=== PATIENT | male | born 1995 | race Caucasian/White ===

== ENCOUNTER 2017-01-20 20:11 | Emergency (ER) | payer BC ==
--- NOTE | 2017-01-20 20:45 | EDM.PDOC ---
ED HPI GENERAL MEDICAL PROBLEM - General Chief Complaint: Behavioral/Psych Stated Complaint: SUICIDAL Time Seen by Provider: 01/20/17 20:41 Source of Information: Reports: Patient History Limitations: Reports: No Limitations - History of Present Illness INITIAL COMMENTS - FREE TEXT/NARRATIVE: HISTORY AND PHYSICAL: [21-year-old male presenting with counselor from the [facility], patient expressed suicidal ideation] History of Present Illness: []Patient has history of opiate abuse Recently has been on the basketball team, he has a hip injury with several surgeries is not improving MRI was not good patient was found in a position crying behind his bed. Patient had text at [employer] to many of his friends. He has a bottle of meloxicam and he was going to take the whole bottle. Patient has history at least 2 of cutting. Review of Systems: As per history of present illness and below otherwise all systems reviewed and negative. Past medical history: As per history of present illness and as reviewed below otherwise noncontributory. Surgical history: As per history of present illness and as reviewed below otherwise noncontributory. Social history: No reported history of drug or alcohol abuse. Family history: As per history of present illness and as reviewed below otherwise noncontributory. Physical exam: Alert male who has fairly good eye contact. He is answering questions well. Discussion with the counselor from the [facility] reveals not quite truthful with some of the answers. Denies hearing voices. Patient does smoke marijuana last instance was 24 hours ago. HEENT: Atraumatic, normocehpalic, pupils reactive, negative for conjunctival pallor or scleral icterus, mucous membranes moist, throat clear, neck supple, nontender, trachea midline. Lungs: Clear to auscultation, breath sounds equal bilaterally, chest non tender. Heart: S1S2, regular, negative for clicks, rubs, or JVD. Abdomen: Soft, nondistended, nontender. Negative for masses or hepatossplenmegaly. Negative for costovertebral tenderness. Pelvis: Stable nontender. Genitourinary: Deferred. Rectal: Deferred Extremities: Atraumatic, negative for cords or calf pain. Neurovascular unremarkable. Neuro: Awake, alert, oriented. Cranial nerves II through XII unremarkable. Cerebellum unremarkable. Motor and sensory unremarkable throughout. Exam nonfocal. Have discussed this case with his counselor from [facility] and relayed our conversation to Dr. Byrd at [facility] services. He has kindly accepted this patient Discussed this patient with emergency room physician Dr. Flowers who will admit the patient to emergency room for further evaluation all returned values will be sent to the emergency room once they have been returned from lab. Diagnostics: [Mental health panel] Therapeutics: [] Impression: [Suicidal ideations] Plan: [Transfer per ground ambulance to [place] [facility].] Definitive disposition and diagnosis as appropriate pending reevaluation and review of above. Onset: Gradual - Related Data Allergies Allergy/AdvReac Type Severity Reaction Status Date / Time No Known Allergies Allergy Verified 01/20/17 20:31 Home Meds: Home Meds . [No Known Home Meds] 01/20/17 [History] Past Medical History Psychiatric History: Reports: Depression - Infectious Disease History Infectious Disease History: Reports: Chicken Pox - Past Surgical History Musculoskeletal Surgical History: Reports: Other (See Below) Other Musculoskeletal Surgeries/Procedures:: Has had bilat lower leg surgeries and has a hip injury Social & Family History - Family History Family Medical History: Noncontributory - Tobacco Use Smoking Status *Q: Never Smoker - Caffeine Use Caffeine Use: Reports: None - Recreational Drug Use Recreational Drug Use: Yes Recreational Drug Type: Reports: Marijuana/Hashish Other Recreational Drug Type: daily marijuana use ED ROS GENERAL - Review of Systems Review Of Systems: ROS reveals no pertinent complaints other than HPI. - Physical Exam Exam: See Below (See dictation) Course - Vital Signs Last Recorded V/S: Last Vital Signs Temp 37.1 C 01/20/17 20:28 Pulse 99 01/20/17 20:28 Resp 16 01/20/17 20:28 BP 114/63 01/20/17 20:28 Pulse Ox 97 01/20/17 20:28 - Orders/Labs/Meds Orders: Active Orders 24 hr Category Date Time Status ACETAMINOPHEN [CHEM] Stat Lab 01/20/17 20:17 Ordered CBC WITH AUTO DIFF [HEME] Stat Lab 01/20/17 20:17 Ordered COMPREHENSIVE METABOLIC PN,CMP [CHEM] Stat Lab 01/20/17 20:17 Ordered DRUG SCREEN, URINE [URCHEM] Stat Lab 01/20/17 20:18 Uncollected ETHANOL BLOOD MEDICAL [CHEM] Stat Lab 01/20/17 20:17 Ordered SALICYLATE [CHEM] Stat Lab 11/21/17 20:17 Ordered Departure - Departure Time of Disposition: 21:02 Disposition: Home, Self-Care 01 Condition: Good Clinical Impression: Self-harm - Discharge Information Referrals: PCP,None [Primary Care Provider] - Forms: ED Department Discharge
[2017-01-20 21:23] LABS: ACETAMINOPHEN < 3.0 ug/mL; CHLORIDE,CL 104 mmol/L (98-110); SODIUM,NA 139 mmol/L (136-146)
== END 2017-01-20 21:40 ==
LOC: MW.ED 20:11 → MERGE 20:11 → MW.ED 21:40
DX: R45.851 Suicidal ideations (principal); F32.9 Major depressive disorder, single episode, unspecified
CPT/HCPCS: 36415; 80053; 80305; 85025; 99285; G0480; 99283

== ENCOUNTER 2017-06-17 03:44 | Emergency (ER) | payer BC ==
[2017-06-17 04:48] LABS: CHLORIDE,CL 105 mmol/L (98-107); SODIUM,NA 140 mmol/L (136-148)
--- NOTE | 2017-06-17 05:27 | EDM.PDOC ---
ED HPI GENERAL MEDICAL PROBLEM - General Chief Complaint: Skin Complaint Stated Complaint: FEELING ILL Time Seen by Provider: 06/17/17 05:25 - History of Present Illness INITIAL COMMENTS - FREE TEXT/NARRATIVE: HISTORY AND PHYSICAL: History of present illness: Patient is a 21-year-old white male presents with a concern of pruritus states also had a poor appetite over the last several days he denies tender lobe swelling is not reporting any fever vomiting diarrhea chest pain shortness of breath or other concern. Review of systems: As per history of present illness and below otherwise all systems reviewed and negative. Past medical history: As per history of present illness and as reviewed below otherwise noncontributory. Surgical history: As per history of present illness and as reviewed below otherwise noncontributory. Social history: No reported history of drug or alcohol abuse. Family history: As per history of present illness and as reviewed below otherwise noncontributory. Physical exam: HEENT: Atraumatic, normocephalic, pupils reactive, negative for conjunctival pallor or scleral icterus, mucous membranes moist, throat clear, neck supple, nontender, trachea midline. Lungs: Clear to auscultation, breath sounds equal bilaterally, chest nontender. Heart: S1S2, regular, negative for clicks, rubs, or JVD. Abdomen: Soft, nondistended, nontender. Negative for masses or hepatosplenomegaly. Negative for costovertebral tenderness. Pelvis: Stable nontender. Genitourinary: Deferred. Rectal: Deferred. Extremities: Atraumatic, negative for cords or calf pain. Neurovascular unremarkable. Neuro: Awake, alert, oriented. Cranial nerves II through XII unremarkable. Cerebellum unremarkable. Motor and sensory unremarkable throughout. Exam nonfocal. Diagnostics: CBC CMP urine drug screen Therapeutics: None Impression: #1 pruritus Definitive disposition and diagnosis as appropriate pending reevaluation and review of above. - Related Data Allergies Allergy/AdvReac Type Severity Reaction Status Date / Time No Known Allergies Allergy Verified 06/17/17 04:01 Home Meds: Home Meds buPROPion [Wellbutrin] 0 mg PO DAILY 06/17/17 [History] Past Medical History Psychiatric History: Reports: Anxiety, Depression - Infectious Disease History Infectious Disease History: Reports: Chicken Pox - Past Surgical History Musculoskeletal Surgical History: Reports: Other (See Below) Other Musculoskeletal Surgeries/Procedures:: Has had bilat lower leg surgeries and has a hip injury Social & Family History - Family History Family Medical History: Noncontributory - Tobacco Use Smoking Status *Q: Never Smoker - Caffeine Use Caffeine Use: Reports: None - Recreational Drug Use Recreational Drug Use: Yes Recreational Drug Type: Reports: Marijuana/Hashish Other Recreational Drug Type: daily marijuana use Recreational Drug Use Frequency: Socially ED ROS GENERAL - Review of Systems Review Of Systems: ROS reveals no pertinent complaints other than HPI. ED EXAM, SKIN/RASH Exam: See Below (See dictation) Course - Vital Signs Last Recorded V/S: Last Vital Signs Temp 36.7 C 06/17/17 03:44 Pulse 75 06/17/17 05:09 Resp 18 06/17/17 05:09 BP 107/55 L 06/17/17 05:09 Pulse Ox 97 06/17/17 03:44 - Orders/Labs/Meds Orders: Active Orders 24 hr Category Date Time Status DRUG SCREEN, URINE [URCHEM] Stat Lab 06/17/17 04:10 Ordered Labs: Laboratory Tests 06/17/17 06/17/17 06/17/17 Range/Units 04:10 04:20 04:20 WBC 5.29 (4.0-11.0) K/uL RBC 5.30 (4.50-5.90) M/uL Hgb 15.8 (13.0-17.0) g/dL Hct 45.4 (38.0-50.0) % MCV 85.7 (80.0-98.0) fL MCH 29.8 (27.0-32.0) pg MCHC 34.8 (31.0-37.0) g/dL RDW Std Deviation 39.5 (28.0-62.0) fl RDW Coeff of [place] 13 (11.0-15.0) % Plt Count 203 (150-400) K/uL MPV 10.30 (7.40-12.00) fL Neut % (Auto) 54.0 (48.0-80.0) % Lymph % (Auto) 35.0 (16.0-40.0) % [place] % (Auto) 9.8 (0.0-15.0) % Eos % (Auto) 0.8 (0.0-7.0) % Baso % (Auto) 0.4 (0.0-1.5) % Neut # (Auto) 2.9 (1.4-5.7) K/uL Lymph # (Auto) 1.9 (0.6-2.4) K/uL [place] # (Auto) 0.5 (0.0-0.8) K/uL Eos # (Auto) 0.0 (0.0-0.7) K/uL Baso # (Auto) 0.0 (0.0-0.1) K/uL Nucleated RBC % 0.0 /100WBC Nucleated RBCs # 0 K/uL Sodium 140 (136-148) mmol/L Potassium 3.7 (3.5-5.1) mmol/L Chloride 105 (98-107) mmol/L Carbon Dioxide 26.7 (21.0-32.0) mmol/L BUN 14 (7.0-18.0) mg/dL Creatinine 1.3 (0.8-1.3) mg/dL Est Cr Clr Drug Dosing 114.23 mL/min Estimated GFR (MDRD) > 60.0 ml/min Glucose 101 (74-106) mg/dL Calcium 9.0 (8.5-10.1) mg/dL Total Bilirubin 0.4 (0.2-1.0) mg/dL AST 21 (15-37) IU/L ALT 26 (14-63) IU/L Alkaline Phosphatase 86 (46-116) U/L Total Protein 7.6 (6.4-8.2) g/dL Albumin 4.1 (3.4-5.0) g/dL Globulin 3.5 (2.0-3.5) g/dL Albumin/Globulin Ratio 1.2 L (1.3-2.8) Urine Opiates Screen NEGATIVE (NEGATIVE) Ur Oxycodone Screen NEGATIVE (NEGATIVE) Urine Methadone Screen NEGATIVE (NEGATIVE) Ur Barbiturates Screen NEGATIVE (NEGATIVE) Ur Phencyclidine Scrn NEGATIVE (NEGATIVE) Ur Amphetamine Screen NEGATIVE (NEGATIVE) U Methamphetamines Scrn NEGATIVE (NEGATIVE) U Benzodiazepines Scrn NEGATIVE (NEGATIVE) U Cocaine Metab Screen NEGATIVE (NEGATIVE) U Marijuana (THC) Screen POSITIVE (NEGATIVE) Departure - Departure Time of Disposition: 05:27 Disposition: Home, Self-Care 01 Condition: Good Clinical Impression: Pruritus - Discharge Information Referrals: PCP,None [Primary Care Provider] - Additional Instructions: The following information is given to patients seen in the emergency department who are being discharged to home. This information is to outline your options for follow-up care. We provide all patients seen in our emergency department with a follow-up referral. The need for follow-up, as well as the timing and circumstances, are variable depending upon the specifics of your emergency department visit. If you don't have a primary care physician on staff, we will provide you with a referral. We always advise you to contact your personal physician following an emergency department visit to inform them of the circumstance of the visit and for follow-up with them and/or the need for any referrals to a consulting specialist. The emergency department will also refer you to a specialist when appropriate. This referral assures that you have the opportunity for followup care with a specialist. All of these measure are taken in an effort to provide you with optimal care, which includes your followup. Under all circumstances we always encourage you to contact your private physician who remains a resource for coordinating your care. When calling for followup care, please make the office aware that this follow-up is from your recent emergency room visit. If for any reason you are refused follow-up, please contact the [facility] emergency department at and asked to speak to the emergency department charge nurse. [facility] [address] [place] [id number] Benadryl as directed Medrol as prescribed: Schedule appointment with clinic above return as needed as discussed - My Orders Last 24 Hours: My Active Orders 06/17/17 04:10 DRUG SCREEN, URINE [URCHEM] Stat - Assessment/Plan Last 24 Hours: My Active Orders 06/17/17 04:10 DRUG SCREEN, URINE [URCHEM] Stat
== END 2017-06-17 05:30 | disposition home or self-care (01) ==
LOC: MW.ED 03:44
DX: L29.9 Pruritus, unspecified (principal); F41.9 Anxiety disorder, unspecified; F32.9 Major depressive disorder, single episode, unspecified
CPT/HCPCS: 36415; 80053; 80305; 85025; 99282; 99283